=== PATIENT | female | born 1995 | race African-American/Black ===

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

== ENCOUNTER 2018-01-01 23:47 | Emergency (ER) | payer OTHER ==
[2018-01-02] MEDS: OXYCODONE/APAP 5MG/325MG(BULK FOR ED) 1 TABLET PO (00:49)
== END 2018-01-02 00:53 | disposition home or self-care (01) ==
LOC: M ED 23:47
DX: S76.012A Strain of muscle, fascia and tendon of left hip, initial encounter (principal); X58.XXXA Exposure to other specified factors, initial encounter; Y92.099 Unspecified place in other non-institutional residence as the place of occurrence of the external cause; Y93.02 Activity, running; Y99.9 Unspecified external cause status; Z72.0 Tobacco use; Z79.3 Long term (current) use of hormonal contraceptives
CPT/HCPCS: 99282

== ENCOUNTER 2018-12-29 02:19 | Emergency (ER) | payer OTHER, SELFPAY ==
[~2018-12-29] VITALS: Ht 175.3 cm; Wt 95.9 kg
[~2018-12-29 02:19] MED LIST: birth control PO
[2018-12-29 03:22] LABS: BASO % 0.3 % (0.0-1.0); EOS # 0.1 10^3/uL (0.0-0.50); EOS % 0.4 % (0.0-3.0); HEMATOCRIT 39.3 % (36.0-47.0); HEMOGLOBIN 13.6 g/dl (12.0-15.5); LYMPH # 3.3 10^3/uL (1.5-6.5); LYMPH % 22.5 % (24.0-44.0); MEAN CORPUSCULAR HEMOGLOBIN 25.7 pg (27.0-33.0); MEAN CORPUSCULAR HGB CONC 34.6 g/dl (32.0-36.5); MEAN CORPUSCULAR VOLUME 74.3 fl (80.0-96.0); MONO # 0.6 10^3/uL (0.0-0.8); MONO % 4.3 % (0.0-5.0); NEUTROPHILS # 10.5 10^3/uL (1.8-7.7); NEUTROPHILS % 72.2 % (36.0-66.0); PLATELET COUNT, AUTOMATED 227 10^3/uL (150-450); RED BLOOD COUNT 5.29 10^6/uL (4.00-5.40); WHITE BLOOD COUNT 14.6 10^3/uL (4.0-10.0)
[2018-12-29 03:48] LABS: ALBUMIN 3.6 GM/DL (3.2-5.2); ALT/SGPT 45 U/L (12-78); BILIRUBIN,DIRECT 0.2 MG/DL (0.0-0.2); BILIRUBIN,TOTAL 0.6 MG/DL (0.2-1.0); BLOOD UREA NITROGEN 8 MG/DL (7-18); CARBON DIOXIDE LEVEL 25 MEQ/L (21-32); CHLORIDE LEVEL 107 MEQ/L (98-107); CREATININE FOR GFR 0.86 MG/DL (0.55-1.30); GLOMERULAR FILTRATION RATE > 60.0 (>60); GLUCOSE, FASTING 100 MG/DL (70-100); LIPASE 74 U/L (73-393); POTASSIUM SERUM 3.5 MEQ/L (3.5-5.1); SODIUM LEVEL 141 MEQ/L (136-145); TOTAL PROTEIN 7.8 GM/DL (6.4-8.2)
[2018-12-29 04:08] LABS: HCG, SERUM QUALITATIVE NEGATIVE (NEGATIVE)
[2018-12-29] MEDS ORDERED: PYRI1TAB5 PO (05:42)
[2018-12-29] MEDS ORDERED: CIPR-249 PO (05:42)
[2018-12-29] MEDS ORDERED: PHENAZOPYRIDINE 100 MG TAB PO ONE (05:45)
[2018-12-29] MEDS ORDERED: CIPROFLOXACIN 500 MG TAB PO ONE (05:45)
[2018-12-29 05:58] VITALS: BP 139/64
== END 2018-12-29 05:59 | disposition home or self-care (01) ==
LOC: M ED 02:19
DX: N12 Tubulo-interstitial nephritis, not specified as acute or chronic (principal); F17.210 Nicotine dependence, cigarettes, uncomplicated; F12.20 Cannabis dependence, uncomplicated

== ENCOUNTER 2019-10-13 03:07 | Emergency (ER) | payer OTHER, SELFPAY ==
[~2019-10-13] VITALS: Ht 175.3 cm; Wt 100.3 kg
[~2019-10-13 03:07] MED LIST changes: +CIPR-249 PO; +PYRI1TAB5 PO
[2019-10-13] MEDS ORDERED: ACETAMINOPHEN 500 MG TAB PO ONE (04:00)
[2019-10-13 04:25] VITALS: BP 123/63
--- NOTE | 2019-10-13 04:28 | REP ---
Clinical: Trauma. Technique: AP and lateral views of the left knee. Findings: No obvious acute fracture dislocation. No significant soft tissue swelling. No obvious effusion. Impression: No acute fracture or dislocation. Electronically Signed by Alvaro Nuno MD 10/13/2019 04:19 A
== END 2019-10-13 04:30 | disposition home or self-care (01) ==
LOC: M ED 03:07
DX: S80.02XA Contusion of left knee, initial encounter (principal); W22.8XXA Striking against or struck by other objects, initial encounter; Y92.410 Unspecified street and highway as the place of occurrence of the external cause